=== PATIENT | female | born 1980 | race Caucasian/White ===

== ENCOUNTER → 2020-10-28 | Outpatient (CLI) | payer BC ==
--- NOTE | 2020-10-29 07:14 | MRI ---
Study: MRI of the Right Knee. Indication: PAIN IN RIGHT KNEE Technique: Multiplanar, multi sequence MRI of the right knee was obtained without intravenous contrast. Comparison: None Findings: ACL, PCL, MCL, and lateral collateral ligament complex intact. Subtle undersurface tearing posterior horn and body medial meniscus with mild free edge truncation. Additional more pronounced high-grade radial tearing posterior root attachment medial meniscus but without complete transection. Body extruded by 2 mm. Lateral meniscus intact. Grade 3/4 chondral delamination of the posterolateral margin of the medial femoral condyle with the involved area measuring approximately 13 mm AP by 8 mm transverse. No high-grade chondral defect lateral compartment. Tendinosis quadriceps tendon insertion and patellar tendon origin. Patella normally located. No high-grade chondral defect patellofemoral compartment. Tiny effusion. No acute fracture. Tiny Garcia's cyst. Impression: Complex multidirectional tearing medial meniscus as above. Grade 3-4 chondral delamination posterolateral margin medial femoral condyle Tendinosis quadriceps tendon insertion. Tiny effusion. Electronically signed by: Vinay Gonzalez MD 10/29/2020 7:12 AM [facility]
== END ==
LOC: MRI 08:05
PROVIDERS: ATTEND Family Medicine
DX: S83.241D Other tear of medial meniscus, current injury, right knee, subsequent encounter (principal); M25.461 Effusion, right knee; M94.261 Chondromalacia, right knee; M77.9 Enthesopathy, unspecified